=== PATIENT | female | born 1935 | race Caucasian/White ===

== ENCOUNTER 2023-10-07 14:49 | Inpatient (IN) | payer MEDICARE, OTHER ==
[2023-10-07] MEDS ORDERED: Sodium Chloride 0.9% 1,000 ML IV ONE (15:32)
[2023-10-07 16:01] LABS: HEMATOCRIT 32.4 % (34.2-48.2); HEMOGLOBIN 10.9 g/dL (11.4-15.5); MEAN CORPUSCULAR HEMOGLOBIN 32.8 pg (23.9-33.9); MEAN CORPUSCULAR HGB CONC 33.5 g/dL (31.9-34.8); MEAN PLATELET VOLUME 8.1 fL (7.1-12.4); PLATELET COUNT,PLT 485 x10(3)uL (151-488); RED BLOOD CELL COUNT 3.31 x10(6)uL (3.60-5.20); WHITE BLOOD CELL COUNT,WBC 18.3 x10-3/uL (3.0-10.3)
[2023-10-07 16:01] LABS: BILIRUBIN,URINE NEGATIVE (NEGATIVE); GLUCOSE,URINE NORMAL (NORMAL); KETONES,URINE NEGATIVE (NEGATIVE); LEUKOCYTE ESTERASE,URINE LARGE (NEGATIVE); NITRITE,URINE POSITIVE (NEGATIVE); OCCULT BLOOD,URINE LARGE (NEGATIVE); PROTEIN,URINE 500 mg/dL (NEGATIVE); UROBILINOGEN,URINE NORMAL (NEGATIVE)
[2023-10-07 16:02] LABS: APPEARANCE,URINE TURBID (CLEAR); COLOR,URINE YELLOW (YELLOW); RBC,URINE PACKED (0-5); WBC,URINE PACKED (0-5)
[2023-10-07 16:06] LABS: BLOOD UREA NITROGEN,BUN 19 mg/dL (7-18); CALCIUM 8.8 mg/dL (8.6-10.2); CARBON DIOXIDE,CO2 28 mmol/L (21-32); CHLORIDE,CL 95 mmol/L (100-110); EST CRCL DRUG DOSING (CG) 28.47 mL/min; ESTIMATED GFR 55 mL/min (>60); GLUCOSE RANDOM 141 mg/dL (80-116); POTASSIUM,K 4.4 mmol/L (3.5-5.3); SODIUM,NA 132 mmol/L (135-145)
[2023-10-07 16:07] LABS: C-REACTIVE PROTEIN 1.81 mg/dL (<0.50)
[2023-10-07 16:13] LABS: A/G RATIO 0.7; ALANINE AMINOTRANSFERASE,ALT 31 U/L (12-36); ALBUMIN 2.9 g/dL (3.2-4.6); ALKALINE PHOSPHATASE 115 IU/L (56-112); ASPARTATE AMNIOTRANSFERASE,AST 36 IU/L (5-25); BAND PERCENT MAN 2 % (0-6); BILIRUBIN TOTAL 0.7 mg/dL (0.1-1.3); EOSINOPHILS PERCENT MAN 1 % (0-5); LYMPHOCYTES PERCENT MAN 3 % (13-37); MONOCYTES PERCENT MAN 8 % (4-12); PROTEIN TOTAL,TP 7.2 g/dL (6.0-8.0); SEG NEUTROPHILS PERCENT MAN 86 % (46-82)
[2023-10-07] MEDS ORDERED: Iopamidol 755 Mg/ML 100 ML Bottle IV SCH (17:00)
[2023-10-07] MEDS ORDERED: Sennosides 8.6 MG Tab PO PRN (20:28)
[2023-10-07] MEDS ORDERED: Psyllium Husk Powder Sugar Free 5.85 GM Packet PO PRN (20:28)
[2023-10-07] MEDS ORDERED: Albuterol 8 GM Inhaler INH PRN (20:28)
[2023-10-07] MEDS ORDERED: Nystatin Crm 15 GM Tube TOP PRN (20:28)
[2023-10-07] MEDS ORDERED: Furosemide 20 MG Tab PO PRN (20:28)
[2023-10-07] MEDS ORDERED: Carboxymethylcellulose Sodium 1% Ophth Gel 15 ML Bottle EYERT PRN (20:28)
[2023-10-07] MEDS ORDERED: D5 1/2 NS w/ 20 mEq/L KCl 1,000 ML IV SCH (20:45)
[2023-10-07] MEDS ORDERED: Clobetasol 0.05% Crm 15 GM Tube TOP SCH (21:00)
[2023-10-07] MEDS: Acetaminophen 325 MG Tab PO SCH (21:27)
[2023-10-07] MEDS: atorvaSTATin 40 MG Tab PO SCH (21:28)
[2023-10-07] MEDS: Donepezil 5 MG Tab PO SCH (21:28)
[2023-10-07] MEDS: Melatonin 3 MG Tab PO SCH (21:29)
[2023-10-07] MEDS: Piperacillin/Tazobactam 3.375 GM in Sodium Chloride 0.9% 50 ML IV SCH (21:32)
[2023-10-07] MEDS: Clobetasol 0.05% Ointment 15 GM Tube TOP SCH (23:40)
[2023-10-08] MEDS: Acetaminophen 325 MG Tab PO SCH ×4 (03:03→20:18)
[2023-10-08] MEDS: Piperacillin/Tazobactam 3.375 GM in Sodium Chloride 0.9% 50 ML IV SCH (03:12)
[2023-10-08] MEDS ORDERED: Sodium Chloride 0.9% 1,000 ML IV SCH (05:15)
[2023-10-08 06:21] LABS: BASOPHILS PERCENT AUTO 0.2 % (0.2-1.5); EOSINOPHILS ABSOLUTE AUTO 0.2 x10-3/uL (0.0-0.8); EOSINOPHILS PERCENT AUTO 1.8 % (0.6-8.1); HEMATOCRIT 27.9 % (34.2-48.2); HEMOGLOBIN 9.2 g/dL (11.4-15.5); LYMPHOCYTES ABSOLUTE AUTO 0.5 x10-3/uL (1.0-4.4); MEAN CORPUSCULAR HEMOGLOBIN 32.4 pg (23.9-33.9); MEAN CORPUSCULAR HGB CONC 32.9 g/dL (31.9-34.8); MEAN CORPUSCULAR VOLUME 98.5 fL (76.7-100.5); MEAN PLATELET VOLUME 8.5 fL (7.1-12.4); MONOCYTES ABSOLUTE AUTO 1.1 x10-3/uL (0.3-1.0); MONOCYTES PERCENT AUTO 9.2 % (4.4-15.7); NEUTROPHILS ABSOLUTE AUTO 10.3 x10-3/uL (1.5-6.3); NEUTROPHILS PERCENT AUTO 84.8 % (30.8-76.2); PLATELET COUNT,PLT 367 x10(3)uL (151-488); RED BLOOD CELL COUNT 2.83 x10(6)uL (3.60-5.20); RED CELL DISTRIBUTION WIDTH 14.2 % (12.3-16.5); WHITE BLOOD CELL COUNT,WBC 12.1 x10-3/uL (3.0-10.3)
[2023-10-08] MEDS: Sodium Chloride 0.9% 10 ML Syringe FLUSH PRN ×2 (08:15→10:02)
[2023-10-08] MEDS ORDERED: Fluticasone/Umeclidin/Vilanter [Trelegy Ellipta] 100-62.5-25 INH SCH (09:00)
[2023-10-08] MEDS ORDERED: Cholestyramine/Sucrose Powder 4 GM Packet PO SCH (09:00)
[2023-10-08] MEDS ORDERED: prednisoLONE Acetate 1% Ophth Susp 5 ML Bottle EYERT SCH (09:00)
[2023-10-08] MEDS: Sodium Chloride 0.9% 1,000 ML IV SCH ×2 (09:57→19:56)
[2023-10-08] MEDS: Piperacillin/Tazobactam 2.25 GM in Sodium Chloride 0.9% 50 ML IV SCH ×3 (10:01→20:34)
[2023-10-08] MEDS: Saccharomyces Boulardii (Probiotic) 250 MG Cap PO SCH (10:13)
[2023-10-08] MEDS: Lisinopril 10 MG Tab PO SCH (10:13)
[2023-10-08] MEDS: Calcium Carbonate 500 MG Tablet PO SCH ×2 (10:13→20:19)
[2023-10-08] MEDS: Loratadine 10 MG Tab PO SCH (10:13)
[2023-10-08] MEDS: Pantoprazole 40 MG Tab.CR PO SCH (10:13)
[2023-10-08] MEDS: valACYclovir 500 MG Tab PO SCH (10:13)
[2023-10-08] MEDS: Enoxaparin 30 MG/0.3 ML Syringe SUBCUT SCH (10:14)
[2023-10-08] MEDS: Polyethylene Glycol 3350 Powder 17 GM Packet PO SCH (10:14)
[2023-10-08] MEDS: Cholecalciferol (Vitamin D3) 25 MCG Tab PO SCH (10:14)
[2023-10-08] MEDS: Budesonide 0.25 MG/2 ML Neb Susp INH SCH ×2 (10:15→20:19)
[2023-10-08] MEDS: Albuterol/Ipratropium 3.0-0.5 MG/3 ML Neb Soln INH SCH ×3 (10:15→20:18)
[2023-10-08] MEDS: prednisoLONE Acetate 1% Ophth Susp 5 ML Bottle EYERT SCH (10:45)
[2023-10-08] MEDS: Clobetasol 0.05% Ointment 15 GM Tube TOP SCH ×2 (10:47→20:19)
[2023-10-08] MEDS ORDERED: Sodium Chloride 0.9% 500 ML IV ONE (16:49)
[2023-10-08] MEDS: Donepezil 5 MG Tab PO SCH (20:18)
[2023-10-08] MEDS: atorvaSTATin 40 MG Tab PO SCH (20:18)
[2023-10-08] MEDS: Melatonin 3 MG Tab PO SCH (20:19)
[2023-10-09] MEDS: Acetaminophen 325 MG Tab PO SCH ×4 (02:44→20:19)
[2023-10-09] MEDS: Piperacillin/Tazobactam 2.25 GM in Sodium Chloride 0.9% 50 ML IV SCH ×4 (02:45→20:42)
[2023-10-09] MEDS: Budesonide 0.25 MG/2 ML Neb Susp INH SCH ×2 (06:02→20:22)
[2023-10-09] MEDS: Pantoprazole 40 MG Tab.CR PO SCH (06:02)
[2023-10-09] MEDS: Sodium Chloride 0.9% 1,000 ML IV SCH (07:04)
[2023-10-09 07:14] LABS: BLOOD UREA NITROGEN,BUN 7 mg/dL (7-18); BUN/CREATININE RATIO 8.8 (9-20); CARBON DIOXIDE,CO2 23 mmol/L (21-32); CHLORIDE,CL 108 mmol/L (100-110); CREATININE 0.8 mg/dL (0.55-1.02); EST CRCL DRUG DOSING (CG) 35.59 mL/min; ESTIMATED GFR 71 mL/min (>60); GLUCOSE RANDOM 138 mg/dL (80-116); POTASSIUM,K 3.7 mmol/L (3.5-5.3); SODIUM,NA 140 mmol/L (135-145)
[2023-10-09 07:14] LABS: HEMATOCRIT 27.1 % (34.2-48.2); MEAN CORPUSCULAR HGB CONC 33.3 g/dL (31.9-34.8); MEAN CORPUSCULAR VOLUME 99.2 fL (76.7-100.5); MEAN PLATELET VOLUME 7.8 fL (7.1-12.4); PLATELET COUNT,PLT 422 x10(3)uL (151-488); RED BLOOD CELL COUNT 2.74 x10(6)uL (3.60-5.20); WHITE BLOOD CELL COUNT,WBC 17.4 x10-3/uL (3.0-10.3)
[2023-10-09 07:25] LABS: BAND PERCENT MAN 2 % (0-6); HYPERSEGMENTED NEUTROPHILS MODERATE; LYMPHOCYTES PERCENT MAN 4 % (13-37); METAMYELOCYTE PERCENT MAN 2 % (0-0); MONOCYTES PERCENT MAN 3 % (4-12); SEG NEUTROPHILS PERCENT MAN 89 % (46-82)
[2023-10-09] MEDS: Polyethylene Glycol 3350 Powder 17 GM Packet PO SCH ×2 (09:00→09:36)
[2023-10-09] MEDS: Saccharomyces Boulardii (Probiotic) 250 MG Cap PO SCH (09:35)
[2023-10-09] MEDS: Albuterol/Ipratropium 3.0-0.5 MG/3 ML Neb Soln INH SCH ×3 (09:35→20:22)
[2023-10-09] MEDS: Loratadine 10 MG Tab PO SCH (09:35)
[2023-10-09] MEDS: Enoxaparin 30 MG/0.3 ML Syringe SUBCUT SCH (09:35)
[2023-10-09] MEDS: Calcium Carbonate 500 MG Tablet PO SCH ×2 (09:36→20:20)
[2023-10-09] MEDS: prednisoLONE Acetate 1% Ophth Susp 5 ML Bottle EYERT SCH (09:36)
[2023-10-09] MEDS: Lisinopril 10 MG Tab PO SCH (09:37)
[2023-10-09] MEDS: Clobetasol 0.05% Ointment 15 GM Tube TOP SCH ×2 (09:37→20:21)
[2023-10-09] MEDS: Cholecalciferol (Vitamin D3) 25 MCG Tab PO SCH (09:38)
[2023-10-09] MEDS: valACYclovir 500 MG Tab PO SCH (09:38)
[2023-10-09] MEDS: Sodium Chloride 0.9% 10 ML Syringe FLUSH PRN ×3 (15:00→21:15)
[2023-10-09] MEDS: atorvaSTATin 40 MG Tab PO SCH (20:20)
[2023-10-09] MEDS: Donepezil 5 MG Tab PO SCH (20:20)
[2023-10-09] MEDS: Melatonin 3 MG Tab PO SCH (20:20)
[2023-10-10] MEDS: Piperacillin/Tazobactam 2.25 GM in Sodium Chloride 0.9% 50 ML IV SCH ×4 (02:53→20:51)
[2023-10-10] MEDS: Acetaminophen 325 MG Tab PO SCH ×4 (03:00→20:27)
[2023-10-10] MEDS: Sodium Chloride 0.9% 10 ML Syringe FLUSH PRN ×2 (03:30→21:20)
[2023-10-10] MEDS: Pantoprazole 40 MG Tab.CR PO SCH (05:39)
[2023-10-10 06:36] LABS: BASOPHILS ABSOLUTE AUTO 0.1 x10-3/uL (0.0-0.1); BASOPHILS PERCENT AUTO 0.6 % (0.2-1.5); EOSINOPHILS ABSOLUTE AUTO 0.1 x10-3/uL (0.0-0.8); HEMATOCRIT 26.1 % (34.2-48.2); HEMOGLOBIN 8.7 g/dL (11.4-15.5); LYMPHOCYTES PERCENT AUTO 7.2 % (18.4-52.1); MEAN CORPUSCULAR HEMOGLOBIN 32.6 pg (23.9-33.9); MEAN CORPUSCULAR HGB CONC 33.1 g/dL (31.9-34.8); MEAN CORPUSCULAR VOLUME 98.4 fL (76.7-100.5); MEAN PLATELET VOLUME 7.6 fL (7.1-12.4); MONOCYTES PERCENT AUTO 7.8 % (4.4-15.7); NEUTROPHILS ABSOLUTE AUTO 11.1 x10-3/uL (1.5-6.3); NEUTROPHILS PERCENT AUTO 83.4 % (30.8-76.2); PLATELET COUNT,PLT 468 x10(3)uL (151-488); RED BLOOD CELL COUNT 2.66 x10(6)uL (3.60-5.20); RED CELL DISTRIBUTION WIDTH 14.3 % (12.3-16.5); WHITE BLOOD CELL COUNT,WBC 13.3 x10-3/uL (3.0-10.3)
[2023-10-10] MEDS: Budesonide 0.25 MG/2 ML Neb Susp INH SCH ×2 (06:37→20:28)
[2023-10-10 06:42] LABS: BLOOD UREA NITROGEN,BUN 3 mg/dL (7-18); BUN/CREATININE RATIO 4.3 (9-20); CALCIUM 8.2 mg/dL (8.6-10.2); CARBON DIOXIDE,CO2 25 mmol/L (21-32); CHLORIDE,CL 109 mmol/L (100-110); CREATININE 0.7 mg/dL (0.55-1.02); EST CRCL DRUG DOSING (CG) 40.67 mL/min; ESTIMATED GFR 84 mL/min (>60); GLUCOSE RANDOM 125 mg/dL (80-116); SODIUM,NA 141 mmol/L (135-145)
[2023-10-10 06:44] LABS: POTASSIUM,K 2.8 mmol/L (3.5-5.3)
[2023-10-10] MEDS: Albuterol/Ipratropium 3.0-0.5 MG/3 ML Neb Soln INH SCH ×3 (08:53→20:28)
[2023-10-10] MEDS: Loratadine 10 MG Tab PO SCH (08:53)
[2023-10-10] MEDS: Calcium Carbonate 500 MG Tablet PO SCH ×2 (08:54→20:27)
[2023-10-10] MEDS: Enoxaparin 30 MG/0.3 ML Syringe SUBCUT SCH (08:54)
[2023-10-10] MEDS: Saccharomyces Boulardii (Probiotic) 250 MG Cap PO SCH (08:54)
[2023-10-10] MEDS: prednisoLONE Acetate 1% Ophth Susp 5 ML Bottle EYERT SCH (08:55)
[2023-10-10] MEDS: Lisinopril 10 MG Tab PO SCH (08:55)
[2023-10-10] MEDS: Clobetasol 0.05% Ointment 15 GM Tube TOP SCH ×3 (08:55→21:28)
[2023-10-10] MEDS: valACYclovir 500 MG Tab PO SCH (08:56)
[2023-10-10] MEDS: Cholecalciferol (Vitamin D3) 25 MCG Tab PO SCH (08:56)
[2023-10-10] MEDS: Polyethylene Glycol 3350 Powder 17 GM Packet PO SCH (08:59)
[2023-10-10] MEDS: oxyCODONE 5 MG Tab PO PRN ×2 (09:11→15:39)
[2023-10-10] MEDS: Potassium Chloride 20 MEQ Tab.ER PO SCH ×2 (09:41→20:27)
[2023-10-10] MEDS: atorvaSTATin 40 MG Tab PO SCH (20:27)
[2023-10-10] MEDS: Donepezil 5 MG Tab PO SCH (20:27)
[2023-10-10] MEDS: Melatonin 3 MG Tab PO SCH (20:27)
[2023-10-11] MEDS: Acetaminophen 325 MG Tab PO SCH ×4 (02:00→21:01)
[2023-10-11] MEDS: Piperacillin/Tazobactam 2.25 GM in Sodium Chloride 0.9% 50 ML IV SCH ×4 (02:53→21:13)
[2023-10-11] MEDS: Sodium Chloride 0.9% 10 ML Syringe FLUSH PRN ×5 (03:31→21:45)
[2023-10-11] MEDS: Pantoprazole 40 MG Tab.CR PO SCH (05:57)
[2023-10-11] MEDS: Budesonide 0.25 MG/2 ML Neb Susp INH SCH ×2 (06:01→21:22)
[2023-10-11 06:41] LABS: BLOOD UREA NITROGEN,BUN 4 mg/dL (7-18); CALCIUM 8.9 mg/dL (8.6-10.2); CARBON DIOXIDE,CO2 26 mmol/L (21-32); CHLORIDE,CL 109 mmol/L (100-110); CREATININE 0.8 mg/dL (0.55-1.02); EST CRCL DRUG DOSING (CG) 35.59 mL/min; ESTIMATED GFR 71 mL/min (>60); GLUCOSE RANDOM 123 mg/dL (80-116); POTASSIUM,K 3.4 mmol/L (3.5-5.3); SODIUM,NA 141 mmol/L (135-145)
[2023-10-11] MEDS: Loratadine 10 MG Tab PO SCH (08:57)
[2023-10-11] MEDS: Albuterol/Ipratropium 3.0-0.5 MG/3 ML Neb Soln INH SCH ×3 (08:58→21:19)
[2023-10-11] MEDS: Enoxaparin 30 MG/0.3 ML Syringe SUBCUT SCH (09:01)
[2023-10-11] MEDS: prednisoLONE Acetate 1% Ophth Susp 5 ML Bottle EYERT SCH (09:03)
[2023-10-11] MEDS: Polyethylene Glycol 3350 Powder 17 GM Packet PO SCH ×2 (09:03→09:16)
[2023-10-11] MEDS: Saccharomyces Boulardii (Probiotic) 250 MG Cap PO SCH (09:03)
[2023-10-11] MEDS: Calcium Carbonate 500 MG Tablet PO SCH ×2 (09:03→21:25)
[2023-10-11] MEDS: Clobetasol 0.05% Ointment 15 GM Tube TOP SCH ×2 (09:04→21:23)
[2023-10-11] MEDS: valACYclovir 500 MG Tab PO SCH (09:04)
[2023-10-11] MEDS: Cholecalciferol (Vitamin D3) 25 MCG Tab PO SCH (09:04)
[2023-10-11] MEDS: Potassium Chloride 20 MEQ Tab.ER PO SCH ×2 (09:08→21:20)
[2023-10-11] MEDS: oxyCODONE 5 MG Tab PO PRN (15:20)
[2023-10-11] MEDS: Donepezil 5 MG Tab PO SCH (21:20)
[2023-10-11] MEDS: atorvaSTATin 40 MG Tab PO SCH (21:21)
[2023-10-11] MEDS: Melatonin 3 MG Tab PO SCH (21:21)
[2023-10-12] MEDS: Acetaminophen 325 MG Tab PO SCH ×2 (02:46→08:57)
[2023-10-12] MEDS: Piperacillin/Tazobactam 2.25 GM in Sodium Chloride 0.9% 50 ML IV SCH ×2 (02:56→09:45)
[2023-10-12] MEDS: Sodium Chloride 0.9% 10 ML Syringe FLUSH PRN ×2 (03:00→03:36)
[2023-10-12 03:31] LABS: BILIRUBIN,URINE NEGATIVE (NEGATIVE); GLUCOSE,URINE NORMAL (NORMAL); KETONES,URINE NEGATIVE (NEGATIVE); LEUKOCYTE ESTERASE,URINE SMALL (NEGATIVE); NITRITE,URINE NEGATIVE (NEGATIVE); OCCULT BLOOD,URINE NEGATIVE (NEGATIVE); PROTEIN,URINE NEGATIVE (NEGATIVE); UROBILINOGEN,URINE NORMAL (NEGATIVE)
[2023-10-12 03:35] LABS: APPEARANCE,URINE CLEAR (CLEAR); BACTERIA,URINE FEW (NS); COLOR,URINE YELLOW (YELLOW); RBC,URINE 0-5 (0-5); SQUAMOUS EPITHELIAL CELLS,UR FEW (NS,R,O)
[2023-10-12] MEDS: Pantoprazole 40 MG Tab.CR PO SCH (06:17)
[2023-10-12] MEDS: Budesonide 0.25 MG/2 ML Neb Susp INH SCH (06:17)
[2023-10-12 06:57] LABS: BASOPHILS ABSOLUTE AUTO 0.1 x10-3/uL (0.0-0.1); BASOPHILS PERCENT AUTO 0.6 % (0.2-1.5); EOSINOPHILS ABSOLUTE AUTO 0.4 x10-3/uL (0.0-0.8); EOSINOPHILS PERCENT AUTO 3.4 % (0.6-8.1); HEMATOCRIT 27.6 % (34.2-48.2); HEMOGLOBIN 9.4 g/dL (11.4-15.5); LYMPHOCYTES ABSOLUTE AUTO 1.5 x10-3/uL (1.0-4.4); LYMPHOCYTES PERCENT AUTO 12.5 % (18.4-52.1); MEAN CORPUSCULAR HEMOGLOBIN 33.8 pg (23.9-33.9); MEAN CORPUSCULAR HGB CONC 34.1 g/dL (31.9-34.8); MEAN PLATELET VOLUME 7.3 fL (7.1-12.4); MONOCYTES ABSOLUTE AUTO 1.3 x10-3/uL (0.3-1.0); MONOCYTES PERCENT AUTO 10.5 % (4.4-15.7); NEUTROPHILS ABSOLUTE AUTO 8.7 x10-3/uL (1.5-6.3); PLATELET COUNT,PLT 536 x10(3)uL (151-488); RED BLOOD CELL COUNT 2.79 x10(6)uL (3.60-5.20); WHITE BLOOD CELL COUNT,WBC 11.9 x10-3/uL (3.0-10.3)
[2023-10-12 07:02] LABS: BLOOD UREA NITROGEN,BUN 7 mg/dL (7-18); BUN/CREATININE RATIO 8.8 (9-20); CALCIUM 9.2 mg/dL (8.6-10.2); CARBON DIOXIDE,CO2 27 mmol/L (21-32); CHLORIDE,CL 108 mmol/L (100-110); CREATININE 0.8 mg/dL (0.55-1.02); EST CRCL DRUG DOSING (CG) 35.59 mL/min; ESTIMATED GFR 71 mL/min (>60); GLUCOSE RANDOM 103 mg/dL (80-116); SODIUM,NA 137 mmol/L (135-145)
[2023-10-12] MEDS: Saccharomyces Boulardii (Probiotic) 250 MG Cap PO SCH (08:55)
[2023-10-12] MEDS: Cholecalciferol (Vitamin D3) 25 MCG Tab PO SCH (08:55)
[2023-10-12] MEDS: Calcium Carbonate 500 MG Tablet PO SCH (08:56)
[2023-10-12] MEDS: Potassium Chloride 20 MEQ Tab.ER PO SCH (08:56)
[2023-10-12] MEDS: Loratadine 10 MG Tab PO SCH (09:01)
[2023-10-12] MEDS: Albuterol/Ipratropium 3.0-0.5 MG/3 ML Neb Soln INH SCH (09:02)
[2023-10-12] MEDS: Polyethylene Glycol 3350 Powder 17 GM Packet PO SCH (09:03)
[2023-10-12] MEDS: Enoxaparin 30 MG/0.3 ML Syringe SUBCUT SCH (09:03)
[2023-10-12] MEDS: valACYclovir 500 MG Tab PO SCH (09:04)
[2023-10-12] MEDS: prednisoLONE Acetate 1% Ophth Susp 5 ML Bottle EYERT SCH (09:04)
[2023-10-12] MEDS: Clobetasol 0.05% Ointment 15 GM Tube TOP SCH (09:07)
== END 2023-10-12 10:55 | DRG 690 ==
LOC: FB.ED 14:49 → FB.MS 18:44
PROVIDERS: ADMIT Family Medicine; ATTEND Family Medicine
DX: N10 Acute pyelonephritis (principal); S22.32XA Fracture of one rib, left side, initial encounter for closed fracture; S22.31XA Fracture of one rib, right side, initial encounter for closed fracture; S32.592A Other specified fracture of left pubis, initial encounter for closed fracture; K59.00 Constipation, unspecified; F03.90 Unspecified dementia, unspecified severity, without behavioral disturbance, psychotic disturbance, mood disturbance, and anxiety; E87.6 Hypokalemia; S32.10XA Unspecified fracture of sacrum, initial encounter for closed fracture; A41.9 Sepsis, unspecified organism; N12 Tubulo-interstitial nephritis, not specified as acute or chronic; S22.43XD Multiple fractures of ribs, bilateral, subsequent encounter for fracture with routine healing; S42.215D Unspecified nondisplaced fracture of surgical neck of left humerus, subsequent encounter for fracture with routine healing; S32.10XD Unspecified fracture of sacrum, subsequent encounter for fracture with routine healing; E78.5 Hyperlipidemia, unspecified; G47.00 Insomnia, unspecified; D64.9 Anemia, unspecified; N30.01 Acute cystitis with hematuria; I95.9 Hypotension, unspecified; R19.7 Diarrhea, unspecified; R91.1 Solitary pulmonary nodule; Z88.6 Allergy status to analgesic agent; D72.829 Elevated white blood cell count, unspecified; Z91.013 Allergy to seafood; E87.1 Hypo-osmolality and hyponatremia; R79.89 Other specified abnormal findings of blood chemistry; E88.09 Other disorders of plasma-protein metabolism, not elsewhere classified; W01.0XXA Fall on same level from slipping, tripping and stumbling without subsequent striking against object, initial encounter; R91.8 Other nonspecific abnormal finding of lung field; J44.9 Chronic obstructive pulmonary disease, unspecified; I10 Essential (primary) hypertension; K21.9 Gastro-esophageal reflux disease without esophagitis; Z87.891 Personal history of nicotine dependence; Z88.8 Allergy status to other drugs, medicaments and biological substances; Z91.011 Allergy to milk products; Z91.018 Allergy to other foods; Z88.2 Allergy status to sulfonamides; Z79.899 Other long term (current) drug therapy; W18.30XA Fall on same level, unspecified, initial encounter
CPT/HCPCS: 36415; 71260; 74177; 80048; 80053; 81001; 82272; 83605; 83690; 85025; 86140; 87040; 87086; 87088; 87186; 93005; 93010; 94640; 96360; 96361; 99223; 99232; 99239; 99285; 99285-25; A9270-GY; C1758; J1650; J2543; J3480; J3490; J7030; J7040; J7620; Q9967; U0002

== ENCOUNTER 2024-07-30 13:46 | Emergency (ER) | payer MEDICARE, OTHER ==
[2024-07-30 14:48] LABS: BASOPHILS PERCENT AUTO 0.5 % (0.2-1.5); EOSINOPHILS ABSOLUTE AUTO 0.1 x10-3/uL (0.0-0.8); EOSINOPHILS PERCENT AUTO 1.2 % (0.6-8.1); HEMATOCRIT 36.5 % (34.2-48.2); HEMOGLOBIN 12.1 g/dL (11.4-15.5); LYMPHOCYTES ABSOLUTE AUTO 1.3 x10-3/uL (1.0-4.4); LYMPHOCYTES PERCENT AUTO 25.9 % (18.4-52.1); MEAN CORPUSCULAR HEMOGLOBIN 28.8 pg (23.9-33.9); MEAN CORPUSCULAR VOLUME 87.1 fL (76.7-100.5); MEAN PLATELET VOLUME 8.7 fL (7.1-12.4); MONOCYTES ABSOLUTE AUTO 0.7 x10-3/uL (0.3-1.0); MONOCYTES PERCENT AUTO 13.2 % (4.4-15.7); NEUTROPHILS PERCENT AUTO 59.2 % (30.8-76.2); PLATELET COUNT,PLT 265 x10(3)uL (151-488); RED BLOOD CELL COUNT 4.19 x10(6)uL (3.60-5.20)
[2024-07-30 14:53] LABS: BLOOD UREA NITROGEN,BUN 25 mg/dL (7-18); CARBON DIOXIDE,CO2 29 mmol/L (21-32); CHLORIDE,CL 99 mmol/L (100-110); EST CRCL DRUG DOSING (CG) 27.93 mL/min; ESTIMATED GFR 54 mL/min (>60); GLUCOSE RANDOM 98 mg/dL (80-116); POTASSIUM,K 4.1 mmol/L (3.5-5.3); SODIUM,NA 138 mmol/L (135-145)
[2024-07-30] MEDS: Sodium Chloride 0.9% 1,000 ML IV ONE (14:53)
[2024-07-30] MEDS: HYDROmorphone 2 MG/ML SDV IVPUSH ONE (14:53)
[2024-07-30 14:56] LABS: A/G RATIO 0.9; ALANINE AMINOTRANSFERASE,ALT 15 U/L (12-36); ALBUMIN 3.6 g/dL (3.2-4.6); ALKALINE PHOSPHATASE 81 IU/L (56-112); ASPARTATE AMNIOTRANSFERASE,AST 22 IU/L (5-25); BILIRUBIN TOTAL 0.4 mg/dL (0.1-1.3); PROTEIN TOTAL,TP 7.5 g/dL (6.0-8.0)
[2024-07-30 15:46] LABS: BILIRUBIN,URINE NEGATIVE (NEGATIVE); GLUCOSE,URINE NORMAL (NORMAL); KETONES,URINE NEGATIVE (NEGATIVE); LEUKOCYTE ESTERASE,URINE SMALL (NEGATIVE); NITRITE,URINE NEGATIVE (NEGATIVE); OCCULT BLOOD,URINE NEGATIVE (NEGATIVE); PROTEIN,URINE NEGATIVE (NEGATIVE); UROBILINOGEN,URINE NORMAL (NEGATIVE)
[2024-07-30 15:51] LABS: APPEARANCE,URINE CLEAR (CLEAR); BACTERIA,URINE FEW (NS); COLOR,URINE YELLOW (YELLOW); RBC,URINE 0-5 (0-5); SQUAMOUS EPITHELIAL CELLS,UR RARE (NS,R,O); WBC,URINE 0-5 (0-5)
[2024-07-30] MEDS: Iopamidol 755 Mg/ML 100 ML Bottle IV SCH (16:01)
[2024-07-30] MEDS: Ketorolac 30 MG/ML SDV IVPUSH ONE (17:38)
[2024-07-30] MEDS: Naproxen 500 MG Tab PO ONE (17:38)
== END 2024-07-30 17:45 | disposition home or self-care (01) ==
LOC: FB.ED 13:46
DX: R10.31 Right lower quadrant pain (principal); I10 Essential (primary) hypertension; J44.9 Chronic obstructive pulmonary disease, unspecified; K21.9 Gastro-esophageal reflux disease without esophagitis; Z86.16 Personal history of COVID-19; Z90.49 Acquired absence of other specified parts of digestive tract; Z87.891 Personal history of nicotine dependence; Z79.899 Other long term (current) drug therapy; Z88.2 Allergy status to sulfonamides; Z88.5 Allergy status to narcotic agent; Z91.011 Allergy to milk products; Z91.013 Allergy to seafood
CPT/HCPCS: 36415; 74177; 80053; 81001; 83690; 85025; 96361; 96374; 99284; A9270; J1170; J7030; Q9967

== ENCOUNTER 2025-03-11 03:52 | Emergency (ER) | payer MEDICARE, OTHER ==
[2025-03-11 04:15] LABS: BASOPHILS ABSOLUTE AUTO 0.1 x10-3/uL (0.0-0.1); BASOPHILS PERCENT AUTO 0.8 % (0.2-1.5); EOSINOPHILS ABSOLUTE AUTO 0.1 x10-3/uL (0.0-0.8); EOSINOPHILS PERCENT AUTO 1.9 % (0.6-8.1); HEMATOCRIT 37.6 % (34.2-48.2); HEMOGLOBIN 12.7 g/dL (11.4-15.5); LYMPHOCYTES ABSOLUTE AUTO 1.2 x10-3/uL (1.0-4.4); LYMPHOCYTES PERCENT AUTO 16.2 % (18.4-52.1); MEAN CORPUSCULAR HEMOGLOBIN 31.1 pg (23.9-33.9); MEAN CORPUSCULAR HGB CONC 33.8 g/dL (31.9-34.8); MEAN CORPUSCULAR VOLUME 92.2 fL (76.7-100.5); MEAN PLATELET VOLUME 8.6 fL (7.1-12.4); MONOCYTES ABSOLUTE AUTO 0.6 x10-3/uL (0.3-1.0); MONOCYTES PERCENT AUTO 8.4 % (4.4-15.7); NEUTROPHILS ABSOLUTE AUTO 5.4 x10-3/uL (1.5-6.3); NEUTROPHILS PERCENT AUTO 72.7 % (30.8-76.2); PLATELET COUNT,PLT 249 x10(3)uL (151-488); RED BLOOD CELL COUNT 4.07 x10(6)uL (3.60-5.20); RED CELL DISTRIBUTION WIDTH 14.5 % (12.3-16.5); WHITE BLOOD CELL COUNT,WBC 7.5 x10-3/uL (3.0-10.3)
[2025-03-11 04:22] LABS: BLOOD UREA NITROGEN,BUN 24 mg/dL (7-18); CALCIUM 9.1 mg/dL (8.6-10.2); CARBON DIOXIDE,CO2 31 mmol/L (21-32); CHLORIDE,CL 105 mmol/L (100-110); EST CRCL DRUG DOSING (CG) 27.39 mL/min; ESTIMATED GFR 54 mL/min (>60); GLUCOSE RANDOM 147 mg/dL (80-116); POTASSIUM,K 3.9 mmol/L (3.5-5.3); SODIUM,NA 142 mmol/L (135-145)
[2025-03-11 04:28] LABS: BILIRUBIN,URINE NEGATIVE (NEGATIVE); GLUCOSE,URINE NORMAL (NORMAL); KETONES,URINE NEGATIVE (NEGATIVE); LEUKOCYTE ESTERASE,URINE NEGATIVE (NEGATIVE); NITRITE,URINE NEGATIVE (NEGATIVE); OCCULT BLOOD,URINE NEGATIVE (NEGATIVE); PROTEIN,URINE NEGATIVE (NEGATIVE); UROBILINOGEN,URINE NORMAL (NEGATIVE)
[2025-03-11 04:28] LABS: A/G RATIO 0.8; ALANINE AMINOTRANSFERASE,ALT 30 U/L (12-36); ALBUMIN 3.4 g/dL (2.9-4.5); ALKALINE PHOSPHATASE 73 IU/L (56-112); ASPARTATE AMNIOTRANSFERASE,AST 29 IU/L (5-25); BILIRUBIN TOTAL 0.3 mg/dL (0.1-1.3); PROTEIN TOTAL,TP 7.5 g/dL (6.0-8.0)
[2025-03-11 04:29] LABS: APPEARANCE,URINE CLEAR (CLEAR); COLOR,URINE YELLOW (YELLOW)
[2025-03-11] MEDS: Sodium Chloride 0.9% 1,000 ML IV ONE (05:16)
== END 2025-03-11 07:09 ==
LOC: FB.ED 03:52
DX: S00.83XA Contusion of other part of head, initial encounter (principal); E78.00 Pure hypercholesterolemia, unspecified; I10 Essential (primary) hypertension; J44.9 Chronic obstructive pulmonary disease, unspecified; Z88.6 Allergy status to analgesic agent; Z91.013 Allergy to seafood; Z88.2 Allergy status to sulfonamides; Z79.899 Other long term (current) drug therapy; Z86.16 Personal history of COVID-19; Z90.49 Acquired absence of other specified parts of digestive tract; W18.39XA Other fall on same level, initial encounter; Y93.89 Activity, other specified
CPT/HCPCS: 36415; 70450; 72125; 80053; 81003; 84484; 85025; 93005; 96360; 99285; J7030

== ENCOUNTER 2025-06-25 11:49 | Emergency (ER) | payer MEDICARE, OTHER, MEDICAID | END 2025-06-25 13:00 | disposition home or self-care (01) | LOC: FB.ED 11:49 | DX: S51.811A Laceration without foreign body of right forearm, initial encounter (principal); S51.812A Laceration without foreign body of left forearm, initial encounter; I10 Essential (primary) hypertension; E78.00 Pure hypercholesterolemia, unspecified; J44.9 Chronic obstructive pulmonary disease, unspecified; K21.9 Gastro-esophageal reflux disease without esophagitis; Z86.16 Personal history of COVID-19; Z88.5 Allergy status to narcotic agent; Z91.013 Allergy to seafood; Z91.011 Allergy to milk products; Z88.2 Allergy status to sulfonamides; W19.XXXA Unspecified fall, initial encounter | CPT/HCPCS: 99282 ==